=== PATIENT | female | born 1970 | race Caucasian/White ===

== ENCOUNTER 2016-10-08 01:40 | Emergency (ER) | payer MEDICAID, OTHER ==
[~2016-10-08] VITALS: Ht 162.6 cm; Wt 90.7 kg
[~2016-10-08 01:40] MED LIST: CIPR500T94 PO; ONDA4TAB10 SL; POTA10TA10 PO
--- NOTE | 2016-10-08 02:09 | PHYS DOC ---
Past Medical History Past Medical History: Hypertension, UTI Past Surgical History: No Surgical History Additional Past Surgical Histo: FX LEFT ANKLE PIN/PLATES Alcohol Use: None Drug Use: None Adult General Chief Complaint Chief Complaint: HAND PROBLEM HPI HPI Patient is a 45 year old female who presents with left hand injury. Patient reports she is walking in the parking lot around 2 or 3 in the afternoon when she tripped over a curb and fell, hitting her left hand on the ground. She did not hit her head, no loss is consciousness. She presents now with pain in her left thumb. She denies pain elsewhere. She has not taken anything for pain. No other acute complaints. Review of Systems Review of Systems Constitutional: Denies fever or chills Respiratory: Denies cough or shortness of breath Cardiovascular: Denies chest pain GI: Denies abdominal pain, nausea, vomiting, or diarrhea Musculoskeletal: L thumb pain Neurologic: Denies headache, focal weakness or sensory changes Current Medications Current Medications Current Medications Medications (Trade) Dose Ordered Sig/Selwyn Start Time Stop Time Status Last Admin Dose Admin Naproxen (Naprosyn) 500 mg 1X ONCE 10/08/16 02:30 10/08/16 02:31 DC 10/08/16 02:33 500 MG Allergies Allergies Allergies Coded Allergies Type Severity Reaction Last Updated Verified No Known Drug Allergies 04/04/16 No Physical Exam Physical Exam Constitutional: Well developed, well nourished, no acute distress, non-toxic appearance HENT: Normocephalic, atraumatic Eyes: EOMI, conjunctiva normal, no discharge Neck: No stridor Pulmonary: No respiratory distress Skin: Warm, dry Musculoskeletal: L thumb bruised, generally TTP over phalanges; no TTP in anatomic snuffbox; motor function (flexion/extension) intact; 2+ radial pulse, sensation to light touch intact Neurologic: Alert and oriented X 3 Psychologic: Affect normal, judgement normal, mood normal Current Patient Data Vital Signs Vital Signs Date Time Temp Pulse Resp B/P Pulse Ox O2 Delivery O2 Flow Rate FiO2 10/08/16 03:11 79 16 166/96 97 Room Air 10/08/16 01:55 97.9 97.9 EKG EKG [] Radiology/Procedures Radiology/Procedures X-ray L hand (my read): No acute fracture Course & Med Decision Making Course & Med Decision Making Pertinent Labs and Imaging studies reviewed. (See chart for details) Patient is 45-year-old female who presents with left thumb injury. Possible fracture versus sprain. We'll obtain x-rays to evaluate. Dose of naproxen ordered for pain control. X-ray without acute fracture per my read. Regardless will still splint with an aluminum splint over the thumb. Patient discharged with instructions for follow-up and return precautions. Dragon Disclaimer Dragon Disclaimer This electronic medical record was generated, in whole or in part, using a voice recognition dictation system. Departure Departure Impression: Primary Impression: Left thumb sprain Disposition: HOME, SELF-CARE Condition: STABLE Referrals: ELLE CAMPBELL MD (PCP) Patient Instructions: Thumb Sprain Additional Instructions: Thank you for allowing us to provide care today in the Emergency Department. You can use naproxen, ibuprofen, or acetaminophen for any pain. Follow the directions on the label. Schedule a follow up appointment with your primary care doctor. Return promptly to the Emergency Department if you develop any new or concerning symptoms. DIANA HENLEY MD Oct 08, 2016 02:09
[2016-10-08] MEDS ORDERED: NAPROXEN 500 MG TABLET PO ONE (02:30)
[2016-10-08 03:11] VITALS: BP 166/96
--- NOTE | 2016-10-08 08:39 | RAD ---
Portable left hand, 3 views, 10/08/2016: History: Pain after a fall There is mild cortical deformity along the margins of the proximal aspect of the distal phalanx of the thumb. The appearance suggests a nondisplaced fracture, of unclear age. No other fracture or dislocation is identified. IMPRESSION: Nondisplaced fracture of the distal phalanx of the thumb, of indeterminate age. If clinically indicated follow-up radiographs in 7-10 days may be useful for further evaluation. Note: The findings were called to personnel in the [facility] ER at 8:36 AM on 10/08/2016.
== END 2016-10-08 03:13 | disposition home or self-care (01) ==
LOC: ER 01:40
DX: S63.602A Unspecified sprain of left thumb, initial encounter (principal); I10 Essential (primary) hypertension; W18.09XA Striking against other object with subsequent fall, initial encounter; Y93.89 Activity, other specified; Y92.481 Parking lot as the place of occurrence of the external cause; Y99.8 Other external cause status
CPT/HCPCS: 29125; 73130; 99284-25

== ENCOUNTER 2018-08-26 06:22 | Emergency (ER) | payer SELFPAY ==
[~2018-08-26] VITALS: Ht 177.8 cm; Wt 90.7 kg
[~2018-08-26 06:22] MED LIST changes: -POTA10TA10 PO; +POTA10TA12 PO
[2018-08-26] MEDS ORDERED: fentaNYL PF VIAL 100 MCG/2 ML VIAL IV ONE ×2 (06:45→08:00)
--- NOTE | 2018-08-26 06:47 | PHYS DOC ---
Past Medical History Past Medical History: Hypertension, UTI Past Surgical History: No Surgical History, Cholecystectomy Additional Past Surgical Histo: FX LEFT ANKLE PIN/PLATES, LEEP, Alcohol Use: None Drug Use: None Adult General Chief Complaint Chief Complaint: SHOULDER INJURY HPI HPI Patient is a 47-year-old female presents to the emergency department for evaluation. She states that she stumbled, trying to avoid some boxes at the top of the stairs, and fell down 5 stairs and in the process dislocated her right shoulder. She has had 2 prior dislocations of her right shoulder, although not for 10 years. She denies any other painful areas or injuries. She denies any headache or neck pain, numbness, or weakness. There are no alleviating or exacerbating factors to her symptoms, except that movement of her right shoulder seems to worsen her pain. Review of Systems Review of Systems Constitutional: Denies fever or chills [] Eyes: Denies change in visual acuity, redness, or eye pain [] HENT: Denies nasal congestion or sore throat [] Respiratory: Denies cough or shortness of breath [] Cardiovascular: The patient denies any shortness of breath, chest pain, palpitations, or orthopnea [] GI: Denies abdominal pain, nausea, vomiting, bloody stools or diarrhea [] : Denies dysuria or hematuria [] Musculoskeletal: Denies back pain or joint pain, except as noted in the history of present illness [] Integument: Denies rash or skin lesions [] Neurologic: Denies headache, focal weakness or sensory changes [] Endocrine: Denies polyuria or polydipsia [] All other systems were reviewed and found to be within normal limits, except as documented in this note. Current Medications Current Medications Current Medications Medications (Trade) Dose Ordered Sig/Selwyn Start Time Stop Time Status Last Admin Dose Admin Fentanyl Citrate (Fentanyl 2ml Vial) 100 mcg 1X ONCE 08/26/18 08:00 08/26/18 08:06 DC Propofol 20 ml @ As Directed STK-MED ONCE 08/26/18 07:36 08/26/18 07:38 DC Sodium Chloride 1,000 ml @ 1,000 mls/hr Q1H 08/26/18 07:59 08/26/18 08:03 DC Allergies Allergies Allergies Coded Allergies Type Severity Reaction Last Updated Verified No Known Drug Allergies 8/11/16 No Physical Exam Physical Exam PHYSICAL EXAM: CONSTITUTIONAL: Well developed, well nourished HEAD: normocephalic, atraumatic EENT: PERRL, EOMI. Conjunctivae normal color, sclerae non-icteric; moist mucous membranes. NECK: Supple, non-tender; no meningismus.There is full, painless range of motion of the cervical spine, without any focal bony midline tenderness to palpation. LUNGS: Lungs CTA, breathing even and unlabored. Normal air movement. HEART: Regular rate and rhythm, no murmur CHEST: No deformity; non-tender ABDOMEN: The abdomen is soft, and non-tender, no masses or bruits. EXTREM: Range of motion in the right shoulder is limited secondary to pain. There is fullness of the anterior aspect of the shoulder with flattening of the right deltoid suggestive of an anterior/inferior dislocation. Deltoid sensation is intact, normal range of motion in the right hand is present. The remainder the right upper extremity, except for the shoulder, is nontender. There is a strong radial pulse on the right. The remainder the extremities are unremarkable , and atraumatic, with Normal ROM; no deformity, no calf tenderness. Normal pulses palpable in all extremities. There is no pedal edema. SKIN: No rash; no diaphoresis NEURO: Alert; normal speech and cognition; CN's grossly intact; strength grossly intact without focal deficit. BACK: No CVA TTP.There is no bony tenderness to palpation of the thoracic or lumbar spine. Current Patient Data Vital Signs Vital Signs Date Time Temp Pulse Resp B/P (MAP) Pulse Ox O2 Delivery O2 Flow Rate FiO2 08/26/18 07:23 19 99 Room Air 08/26/18 06:33 98.2 74 160/87 (111) 98.2 EKG EKG [] Radiology/Procedures Radiology/Procedures [PROCEDURE: SHOULDER 2+V RIGHT EXAM: AP and scapular Y views right shoulder DATE: 08/26/2018 7:08 AM INDICATION: RT SHOULDER PAIN/DISLOCATION AFTER FALL TODAY COMPARISON: No Prior FINDINGS/ IMPRESSION: Anterior-inferior right glenohumeral joint dislocation. No definite associated fracture is seen although would be better assessed on post reduction images.] PROCEDURE: SHOULDER 2+V RIGHT Right shoulder radiograph 08/26/2018 7:44 AM INDICATION: Postreduction of the right shoulder COMPARISON: Right shoulder radiograph August 26, 2017 at 0708 hours TECHNIQUE: 2 views of the right shoulder are provided. FINDINGS: Interval reduction of the humeral head at the glenohumeral joint. Acromioclavicular joint appears well aligned. There may be subtle concavity of the posterior lateral right humeral head suggestive of a Hill-Sachs deformity. Mineralization along the lateral margin of the humeral head may reflect calcific tendinitis. Adjacent ribs are intact. No significant soft tissue abnormality is identified. IMPRESSION: There may be subtle concavity of the posterior lateral right humeral head suggestive of a Hill-Sachs deformity status post reduction. Internal and external rotation views may be of benefit. Mineralization along the lateral margin of the humeral head may reflect calcific tendinitis. Course & Med Decision Making Course & Med Decision Making Pertinent Imaging studies reviewed. (See chart for details) [JOINT REDUCTION PROCEDURE NOTE:] After consent was obtained from the patient, the patient was placed on appropriate monitoring devices, and 50 mg of propofol was administered, resulting in moderate sedation. The right shoulder dislocation was reduced with adduction, slight external rotation and mild traction without difficulty. Patient tolerated procedure well. PMS intact postplacement. The patient will be monitored and released from the emergency department when fully awake. I did stress the importance of close orthopedic follow-up. Dragon Disclaimer Dragon Disclaimer This electronic medical record was generated, in whole or in part, using a voice recognition dictation system. Departure Departure Impression: Primary Impression: Shoulder dislocation Disposition: 01 HOME, SELF-CARE Condition: STABLE Referrals: RAGHAVENDRA ZAMBRANO (PCP) BLANCA TESFAYE II, MD Patient Instructions: Shoulder Dislocation ELLE RENEE MD Aug 26, 2018 06:47
[2018-08-26] MEDS ORDERED: PROPOFOL 20 ML IV ONE (07:36)
--- NOTE | 2018-08-26 07:45 | RAD ---
EXAM: AP and scapular Y views right shoulder DATE: 08/26/2018 7:08 AM INDICATION: RT SHOULDER PAIN/DISLOCATION AFTER FALL TODAY COMPARISON: No Prior FINDINGS/ IMPRESSION: Anterior-inferior right glenohumeral joint dislocation. No definite associated fracture is seen although would be better assessed on post reduction images. Electronically signed by: Jeremiah Yang MD (08/26/2018 7:41 AM) [facility]
[2018-08-26] MEDS ORDERED: IV NORMAL SALINE 1000ML BAG 1,000 ML IV SCH (07:59)
[2018-08-26 08:06] VITALS: BP 158/60
--- NOTE | 2018-08-26 08:30 | RAD ---
Right shoulder radiograph 08/26/2018 7:44 AM INDICATION: Postreduction of the right shoulder COMPARISON: Right shoulder radiograph August 26, 2017 at 0708 hours TECHNIQUE: 2 views of the right shoulder are provided. FINDINGS: Interval reduction of the humeral head at the glenohumeral joint. Acromioclavicular joint appears well aligned. There may be subtle concavity of the posterior lateral right humeral head suggestive of a Hill-Sachs deformity. Mineralization along the lateral margin of the humeral head may reflect calcific tendinitis. Adjacent ribs are intact. No significant soft tissue abnormality is identified. IMPRESSION: There may be subtle concavity of the posterior lateral right humeral head suggestive of a Hill-Sachs deformity status post reduction. Internal and external rotation views may be of benefit. Mineralization along the lateral margin of the humeral head may reflect calcific tendinitis. Electronically signed by: Amita Murcia MD (08/26/2018 8:26 AM) [id number]
[2018-08-26 10:18] VITALS: BP 168/82
== END 2018-08-26 10:36 | disposition home or self-care (01) ==
LOC: ER 06:22
DX: S43.014A Anterior dislocation of right humerus, initial encounter (principal); S43.034A Inferior dislocation of right humerus, initial encounter; I10 Essential (primary) hypertension; W10.8XXA Fall (on) (from) other stairs and steps, initial encounter; Y93.89 Activity, other specified; Y92.89 Other specified places as the place of occurrence of the external cause; Y99.8 Other external cause status
CPT/HCPCS: 23650; 73030; 99285; J3010; 96374